=== PATIENT | female | born 1940 | race Caucasian/White ===

== ENCOUNTER 2017-05-16 06:44 | Inpatient (IN) | payer OTHER, MEDICARE ==
[2017-05-16] VITALS (8 sets, daily range): BP systolic 119–154; BP diastolic 71–90; PULSE 60–87; RESP 18; TEMP 96.5–97.9; O2SAT 93–99
[~2017-05-16] VITALS: Ht 162.6 cm; Wt 58.3 kg
[~2017-05-16 06:44] MED LIST: ALPR-138 PO; AMBI10TA PO; ANAS1 PO; BUPR150T3 PO; HYDR25; HYOS0.1232 PO; LEVA500T33 PO; LEXA10TA PO; LORA0.5T PO; SYNT25TA PO; TIOT18I; TRAM50 PO
[2017-05-16] MEDS ORDERED: SODIUM CHLOR 0.9% 1000 ML INJ 1,000 ML IV ONE (06:57)
--- NOTE | 2017-05-16 07:13 | RADRPT ---
EXAM DATE/TIME: 05/16/2017 06:58 [facility] COMPARISON: No previous studies available for comparison. INDICATIONS : Right arm weakness and numbness. RADIATION DOSE: 57.74 CTDIvol (mGy) This report was called by Dr. Randy Barrios to Dr. Link at 7: 05AM MEDICAL HISTORY : Carcinoma, breast. SURGICAL HISTORY : None. ENCOUNTER: Initial ACUITY: 1 day PAIN SCALE: 0/10 LOCATION: Right cranial stroke scale 2 TECHNIQUE: Multiple contiguous axial images were obtained of the head. Using automated exposure control and adj ustment of the mA and/or kV according to patient size, radiation dose was kept as low as reasonably a chievable to obtain optimal diagnostic quality images. DICOM format image data is available electro nically for review and comparison. FINDINGS: CEREBRUM: The ventricles are normal for age. No evidence of midline shift, mass lesion, hemorrhage or acute in farction. No extra-axial fluid collections are seen. POSTERIOR FOSSA: The cerebellum and brainstem are intact. The 4th ventricle is midline. The cerebellopontine angle i s unremarkable. EXTRACRANIAL: The visualized portion of the orbits is intact. SKULL: The calvaria is intact. No evidence of skull fracture. CONCLUSION: 1. No acute intracranial abnormality. Nish Barrios MD on May 16, 2017 at 7:08 Board Certified Radiologist. This report was verified electronically.
[2017-05-16 07:22] LABS: AUTOMATED NEUTROPHIL # 2.3 TH/MM3 (1.8-7.7); BASOPHIL # 0.1 TH/MM3 (0-0.2); BASOPHIL % 1.2 % (0.0-2.0); EOSINOPHIL # 0.1 TH/MM3 (0-0.4); EOSINOPHIL % 1.9 % (0.0-4.0); HEMATOCRIT 44.6 % (35.0-46.0); HEMO FLAGS DIFF FINAL; LYMPH % 30.1 % (9.0-44.0); LYMPHOCYTE # 1.3 TH/MM3 (1.0-4.8); MEAN CELL VOLUME 103.6 FL (80.0-100.0); MEAN CORPUSCULAR HEMOGLOBIN 33.5 PG (27.0-34.0); MEAN CORPUSCULAR HGB CONC 32.4 % (32.0-36.0); MONO % 9.5 % (0.0-8.0); NEUT % 57.3 % (16.0-70.0); PLATELET COUNT 284 TH/MM3 (150-450); RED CELL DISTRIBUTION WIDTH 12.7 % (11.6-17.2); WHITE BLOOD COUNT 4.2 TH/MM3 (4.0-11.0)
[2017-05-16] MEDS ORDERED: TRAZ50TA12 PO (07:24)
[2017-05-16] MEDS ORDERED: LEVO75TA3 PO (07:24)
[2017-05-16] MEDS ORDERED: BUSP10TA PO (07:25)
[2017-05-16] MEDS ORDERED: VENL75TA PO (07:25)
[2017-05-16 07:27] LABS: CHLORIDE 102 MEQ/L (98-107); POTASSIUM 3.4 MEQ/L (3.5-5.1); SODIUM (NA) 137 MEQ/L (136-145)
[2017-05-16 07:30] LABS: ANION GAP 7 MEQ/L (5-15); BICARBONATE 28.2 MEQ/L (21.0-32.0); BLOOD UREA NITROGEN 10 MG/DL (7-18)
[2017-05-16] MEDS ORDERED: ASPIRIN 325 MG TAB PO ONE (07:30)
[2017-05-16 07:31] LABS: PROTHROMBIN TIME - PATIENT 11.3 SEC (9.8-11.6)
[2017-05-16 07:33] LABS: GLOMERULAR FILTRATION RATE 90 ML/MIN (>89)
[2017-05-16 07:38] LABS: BETA HCG QUANT 3 MIU/ML (0-5)
[2017-05-16 07:39] LABS: CREATINE KINASE 41 U/L (26-192)
[2017-05-16] MEDS ORDERED: IOHEXOL 350 MG/ML 10 ML VIAL (for RAD DIAG) IVCONTRAST ONE (07:45)
--- NOTE | 2017-05-16 08:37 | RADRPT ---
EXAM DATE/TIME: 05/16/2017 07:36 [facility] COMPARISON: CT BRAIN W/O CONTRAST, May 16, 2017, 6:58. INDICATIONS : Rt arm numbness. Post stroke alert. IV CONTRAST: 75 cc Omnipaque 350 (iohexol) IV ; Cumulative dose for multiple exams. RADIATION DOSE: 6.16 CTDIvol (mGy) MEDICAL HISTORY : Carcinoma, breast. SURGICAL HISTORY : Cholecystectomy. Appendectomy.Hysterectomy.Cole knees ENCOUNTER: Initial ACUITY: 1 day PAIN SCALE: 0/10 LOCATION: cranial TECHNIQUE: Volumetric scanning was performed using a multi-row detector CT scanner. The data was post processed with a variety of visualization algorithms including full volume maximum intensity projection, multi -planar sliding thin slab reformation, curved planar reformation, and surface rendering techniques. Using automated exposure control and adjustment of the mA and/or kV according to patient size, radiat ion dose was kept as low as reasonably achievable to obtain optimal diagnostic quality images. DICO M format image data is available electronically for review and comparison. FINDINGS: The basilar artery is widely patent. The distal internal carotid arteries are patent. The anterior an d middle cerebral circulation appears widely patent bilaterally. The posterior circulation is widely patent. No aneurysm is identified. No AVM is identified. CONCLUSION: 1. Negative CTA of the brain. No large or central vessel occlusion identified. Nish Barrios MD on May 16, 2017 at 8:33 Board Certified Radiologist. This report was verified electronically.
--- NOTE | 2017-05-16 08:42 | RADRPT ---
EXAM DATE/TIME: 05/16/2017 07:36 [facility] COMPARISON: CT BRAIN W/O CONTRAST, May 16, 2017, 6:58. INDICATIONS : Rt arm numbness. Post code stroke. IV CONTRAST: 75 cc Omnipaque 350 (iohexol) IV ; Cumulative dose for multiple exams. RADIATION DOSE: 13.17 CTDIvol (mGy) MEDICAL HISTORY : Carcinoma, breast. SURGICAL HISTORY : Appendectomy. Cholecystectomy.Hysterectomy.Cole knees ENCOUNTER: Initial ACUITY: 1 day PAIN SCALE: 0/10 LOCATION: neck Elevated flow velocities and ICA/CCA ratios have been found to correlate with increased degrees of vessel stenosis, calculated as percentage of diameter relative to a normal segment of distal ICA/CCA. TECHNIQUE: Volumetric scanning was performed using a multirow detector CT scanner. The data was post processed with a variety of visualization algorithms including full-volume maximum intensity projection, multip lanar sliding thin-slab reformation, curved-planar reformation, and surface-rendering techniques. Us ing automated exposure control and adjustment of the mA and/or kV according to patient size, radiatio n dose was kept as low as reasonably achievable to obtain optimal diagnostic quality images. DICOM f ormat image data is available electronically for review and comparison. FINDINGS: AORTIC ARCH: There is a three-vessel origin of the great vessels from the aorta. No evidence of ostial narrowing. RIGHT CAROTID: The common carotid is widely patent. There is minimal atherosclerotic plaquing at the bifurcation. Th e internal carotid and external carotid are widely patent throughout their course. LEFT CAROTID: The common carotid is widely patent. There is minimal atherosclerotic plaquing at the bifurcation. Th e internal carotid and external carotid are widely patent throughout their course. VERTEBRALS: The right vertebral is considerably smaller in size than the left. Both are patent.. No stenotic les ions are seen. CONCLUSION: 1. Minimal atherosclerotic plaquing at the carotid bifurcations. No hemodynamically significant carot id stenosis identified. 2. Both vertebrals are widely patent. The right vertebral is smaller in size than the left. 3. Degenerative changes in the cervical spine. Nish Barrios MD on May 16, 2017 at 8:39 Board Certified Radiologist. This report was verified electronically.
--- NOTE | 2017-05-16 09:04 | PD ---
HPI Chief Complaint: Stroke Alert Time Seen by Provider: 07:23 Travel History International Travel<30 days: No Contact w/Intl Traveler<30days: No Traveled to known affect area: No History of Present Illness HPI Patient is a 76-year-old female who comes in complaining of right arm numbness and weakness. She says she woke up around 5 AM this morning and was fine, but when she went to brush her teeth, she noticed that she was unable to control her hand. She says that she was unable to brush her hair and when she tried to hold a cup, she dropped it several times. She then drove herself to the hospital to be evaluated. She denies any weakness in her legs. She says she's never had this before. She does admit to being under a lot of stress as she recently lost her . She denies chest pain or shortness of breath. She denies fever or chills. She has no vision issues. PFSH Past Medical History Arthritis: Yes ( OSTEOARTHRITIS) Blood Disorders: No Anxiety: Yes Depression: Yes Cancer: Yes (BREAST CA) Cardiovascular Problems: No Chemotherapy: Yes Diminished Hearing: No Endocrine: No Genitourinary: No Immune Disorder: No Musculoskeletal: Yes (R KNEE REPLACEMENT) Neurologic: No Psychiatric: No Respiratory: No Radiation Therapy: No Thyroid Disease: Yes Influenza Vaccination: No ?: Not Menopausal: Yes Past Surgical History Abdominal Surgery: Yes (GALLBLADDER,APPENDIX,HYSTERECTOMY) Appendectomy: Yes Cardiac Surgery: No Cholecystectomy: Yes Ear Surgery: No Endocrine Surgery: No Eye Surgery: No Genitourinary Surgery: No Gynecologic Surgery: Yes (HYSTERECTOMY) Hysterectomy: Yes Joint Replacement: Yes (RIGHT KNEE/LEFT KNEE) Neurologic Surgery: No Oral Surgery: No Pacemaker: No Thoracic Surgery: No Other Surgery: Yes (BREAST CA -BIOPSY AND LYMPHNODES REMOVED TO LEFT ) Social History Alcohol Use: Yes (LARGE AMOUNTS OF WINE DAILY) Tobacco Use: Yes Substance Use: No Allergies-Medications (Allergen,Severity, Reaction): Coded Allergies: No Known Allergies (Verified , 05/16/17) Reported Meds & Prescriptions Reported Meds & Active Scripts Active Reported Buspirone (Buspirone HCl) 10 Mg Tab 10 Mg PO DAILY Effexor (Venlafaxine HCl) 75 Mg Tab 75 Mg PO DAILY Trazodone (Trazodone HCl) 50 Mg Tab 50 Mg PO HS Levothyroxine (Levothyroxine Sodium) 75 Mcg Tab 75 Mcg PO DAILY Review of Systems Except as stated in HPI: all other systems reviewed are Neg General / Constitutional: No: Fever, Chills Eyes: No: Blurred Vision HENT: No: Headaches, Lightheadedness Cardiovascular: No: Chest Pain or Discomfort Respiratory: No: Shortness of Breath Gastrointestinal: No: Nausea, Vomiting Genitourinary: No: Dysuria Musculoskeletal: No: Edema, Pain Skin: No Rash, No Change in Pigmentation Neurologic: Positive: Weakness, Paresthesia Physical Exam Narrative GENERAL: Awake and alert, in no acute distress. SKIN: Focused skin assessment warm/dry. HEAD: Atraumatic. Normocephalic. EYES: Pupils equal and round. No scleral icterus. Extraocular movements intact. ENT: Mucous membranes pink and moist. NECK: Trachea midline. No JVD. CARDIOVASCULAR: Regular rate and rhythm. No murmur appreciated. RESPIRATORY: No accessory muscle use. Clear to auscultation. Breath sounds equal bilaterally. GASTROINTESTINAL: Abdomen soft, non-tender, nondistended. MUSCULOSKELETAL: No obvious deformities. No clubbing. No cyanosis. No edema. NEUROLOGICAL: Awake and alert. No obvious cranial nerve deficits. Equal airframe and powerplant mechanic strength in both hands, equal strength in both arms. There is a slight pronator drift on the right. Decreased sensation to the right hand. Strength in both legs is equal. Sensation to both legs is equal. Normal speech. PSYCHIATRIC: Appropriate mood and affect; insight and judgment normal. Data Data Last Documented VS Vital Signs Date Time Temp Pulse Resp B/P (MAP) Pulse Ox O2 Delivery O2 Flow Rate FiO2 05/16/17 08:13 69 18 128/71 (90) 98 Room Air 05/16/17 07:02 2.00 05/16/17 06:57 97.9 Orders Orders Cath For Specimen (05/16/17 06:57) Neuro Checks Q2HX12,Q4H (05/16/17 06:57) Nursing Bedside Swallow Assess .ONCE (05/16/17 06:57) Activity Bed Rest (05/16/17 06:57) Diet Npo (05/16/17 Breakfast) Prothrombin Time / Inr (Pt) (05/16/17 06:57) Act Partial Throm Time (Ptt) (05/16/17 06:57) Complete Blood Count With Diff (05/16/17 06:57) Basic Metabolic Panel (Bmp) (05/16/17 06:57) Fibrinogen (05/16/17 06:57) Creatine Kinase (Cpk) (05/16/17 06:57) Troponin I (05/16/17 06:57) Ua Includes Microscopic (05/16/17 06:57) Drug Screen, Random Urine (05/16/17 06:57) Type And Screen (05/16/17 06:57) Ct Brain W/O Iv Contrast(Rout) (05/16/17 ) Electrocardiogram (05/16/17 ) Beta Hcg (Quant/Titer) (05/16/17 06:57) Consult Neurology (05/16/17 06:57) Sodium Chlor 0.9% 1000 Ml Inj (Ns 1000 M (05/16/17 06:57) Blood Glucose (05/16/17 06:57) Ecg Monitoring (05/16/17 06:57) Iv Access Insert/Monitor (05/16/17 06:57) NPO (05/16/17 06:57) Oximetry (05/16/17 06:57) Oxygen Administration (05/16/17 06:57) Resp Oxygen Sam C Titrat 1-4 L (05/16/17 06:57) (Hub Use Only)Inp Phy Cons/Ref (05/16/17 ) Aspirin (Aspirin) (05/16/17 07:30) Cta Brain W Iv Contrast W 3d (05/16/17 ) Cta Neck W Iv Contrast W 3d (05/16/17 ) Iohexol 350 Inj (Omnipaque 350 Inj) (05/16/17 07:45) Labs Laboratory Tests Test 05/16/17 07:12 White Blood Count 4.2 TH/MM3 Red Blood Count 4.30 MIL/MM3 Hemoglobin 14.4 GM/DL Hematocrit 44.6 % Mean Corpuscular Volume 103.6 FL Mean Corpuscular Hemoglobin 33.5 PG Mean Corpuscular Hemoglobin Concent 32.4 % Red Cell Distribution Width 12.7 % Platelet Count 284 TH/MM3 Mean Platelet Volume 6.5 FL Neutrophils (%) (Auto) 57.3 % Lymphocytes (%) (Auto) 30.1 % Monocytes (%) (Auto) 9.5 % Eosinophils (%) (Auto) 1.9 % Basophils (%) (Auto) 1.2 % Neutrophils # (Auto) 2.3 TH/MM3 Lymphocytes # (Auto) 1.3 TH/MM3 Monocytes # (Auto) 0.4 TH/MM3 Eosinophils # (Auto) 0.1 TH/MM3 Basophils # (Auto) 0.1 TH/MM3 CBC Comment DIFF FINAL Differential Comment Prothrombin Time 11.3 SEC Prothromb Time International Ratio 1.0 RATIO Activated Partial Thromboplast Time 25.0 SEC Fibrinogen 280 mg/dL Blood Urea Nitrogen 10 MG/DL Creatinine 0.64 MG/DL Random Glucose 104 MG/DL Calcium Level 8.5 MG/DL Sodium Level 137 MEQ/L Potassium Level 3.4 MEQ/L Chloride Level 102 MEQ/L Carbon Dioxide Level 28.2 MEQ/L Anion Gap 7 MEQ/L Estimat Glomerular Filtration Rate 90 ML/MIN Total Creatine Kinase 41 U/L Troponin I LESS THAN 0.02 NG/ML Human Chorionic Gonadotropin, Quant 3 MIU/ML MDM Medical Decision Making Medical Screen Exam Complete: Yes Emergency Medical Condition: Yes Medical Record Reviewed: Yes Interpretation(s) ECG shows normal sinus rhythm at 72, no ST elevation or depression, normal intervals Differential Diagnosis TIA versus stroke versus electrolyte abnormality versus infection Narrative Course Patient is a 76-year-old female who comes in complaining of right arm weakness. Exam shows slight pronator drift on the right, otherwise motor is intact. Patient was stroke alerted and taken to CT. CT head is negative for any bleed. I spoke with Dr. Cruz, who does not advised TPA at this time due to the fact that she woke up and had symptoms as well as the minor severity of the symptoms. He suggests aspirin. Patient was given a full 325 mg aspirin. Labs sent show no acute abnormalities. CTA brain and carotids show no acute abnormalities. Patient will be admitted for further management. Diagnosis Primary Impression: Stroke Qualified Codes: I63.9 - Cerebral infarction, unspecified Admitting Information Admitting Physician Requests: Admit Condition: Aminta Reed MD May 16, 2017 09:04
[2017-05-16] MEDS: SODIUM CHLOR 0.9% 1000 ML INJ 1,000 ML IV SCH (09:53)
[2017-05-16 10:37] LABS: GLUCOSE,URINE NEG (NEG); KETONE, URINE NEG (NEG); NITRITE,URINE NEG (NEG)
[2017-05-16 10:45] LABS: BLOOD, URINE TRACE (NEG)
[2017-05-16 10:47] LABS: METHOD OF COLLECTION CATH; URINE COLOR YELLOW (YELLW/STRAW); WBC, URINE 0-2 /hpf (0-5)
[2017-05-16] MEDS ORDERED: GADODIAMIDE PF 287 MG/ML 20 ML VIAL (for RAD MRI) IVCONTRAST ONE (12:08)
--- NOTE | 2017-05-16 12:16 | RADRPT ---
EXAM DATE/TIME: 05/16/2017 11:51 [facility] COMPARISON: No previous studies available for comparison. INDICATIONS : Right upper extremity numbness and weakness. MEDICAL HISTORY : Carcinoma, breast. SURGICAL HISTORY : Appendectomy. Cholecystectomy. Total knee replacement, right. ENCOUNTER: Initial ACUITY: 1 day PAIN SCORE: 0/10 LOCATION: cranial TECHNIQUE: Multiplanar, multisequence MRI of the brain was performed without contrast. FINDINGS: The diffusion restriction images demonstrate a small area of abnormal restricted diffusion involving the pre-and postcentral gyri on the left. This would suggest a punctate area of distal cortical infar ct. No other areas of abnormal diffusion signal are identified. The ventricular system is normal in size and could be duration. There are some scattered areas of inc reased T2 signal within the white matter most consistent with mild microvascular ischemic demyelinati ve change. No mass lesion is identified. No extra-axial fluid collections are seen. The appearance of the posterior fossa is unremarkable. The visualized portion of sinus and orbit are within normal limits. No findings to indicate hemorrhage are seen. CONCLUSION: 1. Small area of abnormal diffusion signal in the high left parietal cortices suggesting a very small area of acute cortical infarct. Nish Barrios MD on May 16, 2017 at 12:12 Board Certified Radiologist. This report was verified electronically.
--- NOTE | 2017-05-16 12:19 | RADRPT ---
EXAM DATE/TIME: 05/16/2017 11:51 [facility] COMPARISON: No previous studies available for comparison. INDICATIONS : Right upper extremity numbness and weakness. CONTRAST: 20 cc Omniscan (gadodiamide) IV MEDICAL HISTORY : Carcinoma, breast. SURGICAL HISTORY : Appendectomy. Cholecystectomy. Total knee replacement, right. ENCOUNTER: Initial ACUITY: 1 day PAIN SCORE: 0/10 LOCATION: cranial Percent stenosis is calculated using the diameter of the stenotic region over the diameter of the nor mal distal internal carotid artery. TECHNIQUE: Bolus infused MRA of the extracranial circulation was performed using a neurovascular coil. Post pro cessing was performed including rotating subvolume maximum intensity projections of each carotid blanquita ry, rotating full volume maximum intensity projections of both carotid arteries, sagittal and coronal sliding thin slab reformations of each carotid artery, and left oblique sliding thin slab reformatio n through the aortic arch to include the origin of the arch branch vessels. FINDINGS: AORTIC ARCH: There is a three vessel origin of the great vessels from the aorta. No evidence of ostial narrowing. RIGHT CAROTID: The common carotid artery is intact. The carotid bulb has a normal configuration without ulceration or narrowing. The internal carotid artery lumen is smooth without stenosis. The external carotid ar gela is intact. LEFT CAROTID: The common carotid artery is intact. The carotid bulb has a normal configuration without ulceration or narrowing. The internal carotid artery lumen is smooth without stenosis. The external carotid ar gela is intact. VERTEBRALS: The left vertebral is somewhat smaller in size in the right. Both are widely patent. CONCLUSION: 1. The carotid circulation is widely patent bilaterally. 2. The right vertebral is somewhat smaller in size in the left. Both vertebrals are patent. Nish Barrios MD on May 16, 2017 at 12:16 Board Certified Radiologist. This report was verified electronically.
--- NOTE | 2017-05-16 13:08 | PD.CONS ---
History of Present Illness Service Neurology Consult Requested By er Reason for Consult stroke alert Primary Care Physician Romina Kramer MD History of Present Illness 76-year-old female who comes in complaining of right arm numbness and weakness. woke up at around 5am and when she was using her rt arm noticed it was clumsy. went to sleep last night in her normal state of health. She denies chest pain or shortness of breath. She denies fever or chills. She has no vision issues. she feels well at present and feels back to normal and asking if she can go home. no hx of stroke/tia. no on any blood thinners. smokes 1.5 ppd x decades. hx of breast cancer. no hx of dvt/pe/clot/afib. PFSH Past Medical History Arthritis: Yes ( OSTEOARTHRITIS) Blood Disorders: No Anxiety: Yes Depression: Yes Cancer: Yes (BREAST CA) Cardiovascular Problems: No Chemotherapy: Yes Past Surgical History Abdominal Surgery: Yes (GALLBLADDER,APPENDIX,HYSTERECTOMY) Appendectomy: Yes Gynecologic Surgery: Yes (HYSTERECTOMY) Hysterectomy: Yes Joint Replacement: Yes (RIGHT KNEE/LEFT KNEE) Thoracic Surgery: No Other Surgery: Yes (BREAST CA -BIOPSY AND LYMPHNODES REMOVED TO LEFT ) Social History Alcohol Use: Yes (LARGE AMOUNTS OF WINE DAILY) Tobacco Use: Yes Substance Use: No Allergies-Medications (Allergen,Severity, Reaction): Coded Allergies: No Known Allergies (Verified , 05/16/17) Reported Meds & Prescriptions Reported Meds & Active Scripts Active Reported Buspirone (Buspirone HCl) 10 Mg Tab 10 Mg PO DAILY Effexor (Venlafaxine HCl) 75 Mg Tab 75 Mg PO DAILY Trazodone (Trazodone HCl) 50 Mg Tab 50 Mg PO HS Levothyroxine (Levothyroxine Sodium) 75 Mcg Tab 75 Mcg PO DAILY Review of Systems Except as stated in HPI: all other systems reviewed are Neg Review of Systems All other ROS: ROS reviewed as documented in chart Past Family Social History Allergies: Coded Allergies: No Known Allergies (Verified , 05/16/17) Active Ordered Medications Current Medications Medications (Trade) Dose Ordered Sig/Scott Route Start Time Stop Time Status Last Admin Sodium Chloride 1,000 ml @ 70 mls/hr [id number] ONCE IV 05/16/17 06:57 05/16/17 21:14 05/16/17 07:57 Sodium Chloride 1,000 ml @ 70 mls/hr [id number] IV 05/16/17 09:53 (Buspar) 10 mg DAILY PO 05/17/17 09:00 (Synthroid) 75 mcg DAILY@0600 PO 05/17/17 06:00 (Desyrel) 50 mg HS PO 05/16/17 21:00 (Effexor Xr) 75 mg DAILY PO 05/17/17 09:00 Exam I&O / VS 05/16/17 05/16/17 05/17/17 14:59 22:59 06:59 Intake Total 120 ml Balance 120 ml Intake Oral 120 ml # Voids 1 Vital Signs Date Time Temp Pulse Resp B/P (MAP) Pulse Ox O2 Delivery O2 Flow Rate FiO2 05/16/17 11:00 65 18 124/88 (100) 98 Nasal Cannula 2.00 05/16/17 09:32 60 18 144/79 (100) 98 Room Air 05/16/17 08:13 69 18 128/71 (90) 98 Room Air 05/16/17 07:22 67 18 119/80 (93) 99 Room Air 05/16/17 07:02 97 Nasal Cannula 2.00 05/16/17 06:57 97.9 87 18 154/90 (111) 96 General: Alert and Oriented, No acute distress Eye: EOMI, Normal conjuctiva Respiratory: Non-labored respirations Cardiology: Normal rate Neurologic: Alert, Oriented, Normal sensory, Normal motor, CN II-XII intact, Gag reflex normal, Normal DTR's Psychiatric: Cooperative, Appropriate mood & affect, Normal judgement, Non- suicidal Exam Comments ox 3, no aphasia, pleasant, follows, eomi, vff, no drift, minimal rt ue dystaxia , sensory nml Review/Management Diagnosis/Plan: (1) Acute ischemic left MCA stroke ICD Codes: I63.512 - Cerebral infarction due to unspecified occlusion or stenosis of left middle cerebral artery Status: Acute Plan: very tiny left cortical infarct; non-disabling likely 2/2 small vessel dz from distal atherosclerotic vessel cta's reviewed; no large or small vessel occlusion recs aspirin daily tobacco cessation tele echo lipid panel- add statin if ldl >70 should f.u with her onc md for hypercoag w/u if they feel appropriate should get a long-term event monitor with cardiology to r/o afib- can get this outpatient d/c planning in am f/u with me and Dr. Kramer in 2 weeks pt going on a cruise on Thursday (2) Tobacco dependence ICD Codes: F17.200 - Nicotine dependence, unspecified, uncomplicated Status: Chronic Plan: cessation d/w pt risks of continued use d/w (3) HTN (hypertension) ICD Codes: I10 - Essential (primary) hypertension Status: Chronic (4) Breast cancer ICD Codes: C50.919 - Malignant neoplasm of unspecified site of unspecified female breast Status: Resolved Problem Qualifiers (1) HTN (hypertension): Qualified Codes: I10 - Essential (primary) hypertension (2) Breast cancer: Robert Cruz MD May 16, 2017 13:08
--- NOTE | 2017-05-16 13:32 | HHI.HP ---
[facility] Primary [facility] Physician Romina Kramer MD Admission Diagnosis CVA Diagnoses: Chief Complaint: right arm numbness Travel History International Travel<30 Days: No Contact w/Intl Traveler <30 Da: No Traveled to Known Affected Are: No History of Present Illness Patient is a 76-year-old female with acute onset of right arm numbness and weakness after she woke up around 5 AM this morning. She then drover her son to work and herself to the hospital. She has periodic symptoms in the right leg but not today. She drinks several glasses of wine every evening (her about 2 weeks ago). She was fine before she went to bed and when she got up to go tho the bathroom overnight. Her symptoms are improved without intervention and she is admitted for evaluation of probable cva. Review of Systems Constitutional: DENIES: Diaphoretic episodes, Fatigue, Fever, Weight gain, Weight loss, Chills, Dizziness, Change in appetite, Night Sweats Endocrine: DENIES: Abnorml menstrual pattern, Heat/cold intolerance, Polydipsia , Polyuria, Polyphagia Eyes: DENIES: Blurred vision, Diplopia, Eye inflammation, Eye pain, Vision loss , Photosensitivity, Double Vision Ears, nose, mouth, throat: DENIES: Tinnitus, Hearing loss, Vertigo, Nasal discharge, Oral lesions, Throat pain, Hoarseness, Ear Pain, Running Nose, Epistaxis, Sinus Pain, Toothache, Odynophagia Cardiovascular: DENIES: Chest pain, Palpitations, Syncope, Dyspnea on Exertion , PND, Lower Extremity Edema, Orthopnea, Claudication Genitourinary: DENIES: Abnormal vaginal bleeding, Dysmenorrhea, Dyspareunia, Sexual dysfunction, Urinary frequency, Urinary incontinence, Urgency, Hematuria , Dysuria, Nocturia, Vaginal discharge Musculoskeletal: DENIES: Joint pain, Muscle aches, Stiffness, Joint Swelling, Back pain, Neck pain Integumentary: DENIES: Abnormal pigmentation, Pruritus, Rash, Nail changes, Breast masses, Breast skin changes, Nipple discharge Hematologic/lymphatic: DENIES: Bruising, Lymphadenopathy Immunologic/allergic: DENIES: Eczema, Urticaria Neurologic: COMPLAINS OF: Localized weakness, Paresthesias, DENIES: Abnormal gait, Headache, Seizures, Speech Problems, Tremor, Poor Balance Psychiatric: DENIES: Anxiety, Confusion, Mood changes, Depression, Hallucinations, Agitation, Suicidal Ideation, Homicidal Ideation, Delusions Except as stated in HPI: all other systems reviewed are Neg Past Family Social History Past Medical History depression thyroid d/o Past Surgical History appy [facility] Reported Medications reviewed in the EMR Allergies: Coded Allergies: No Known Allergies (Verified , 05/16/17) Active Ordered Medications reviewed in the EMR Family History mother of lymphoma father at 91 Social History tobacco 1 ppd or more etoh daily (wine) lives with son x 1 month Physical Exam Vital Signs Vital Signs Date Time Temp Pulse Resp B/P (MAP) Pulse Ox O2 Delivery O2 Flow Rate FiO2 05/16/17 11:00 65 18 124/88 (100) 98 Nasal Cannula 2.00 05/16/17 09:32 60 18 144/79 (100) 98 Room Air 05/16/17 08:13 69 18 128/71 (90) 98 Room Air 05/16/17 07:22 67 18 119/80 (93) 99 Room Air 05/16/17 07:02 97 Nasal Cannula 2.00 05/16/17 06:57 97.9 87 18 154/90 (111) 96 Physical Exam GENERAL: This is a well-nourished, well-developed patient, in no apparent distress. SKIN: No rashes, ecchymoses or lesions. Cool and dry. HEAD: Atraumatic. Normocephalic. No temporal or scalp tenderness. EYES: Pupils equal round and reactive. Extraocular motions intact. No scleral icterus. No injection or drainage. ENT: Nose without bleeding, purulent drainage or septal hematoma. Throat without erythema, tonsillar hypertrophy or exudate. Uvula midline. Airway patent. NECK: Trachea midline. No JVD or lymphadenopathy. Supple, nontender, no meningeal signs. CARDIOVASCULAR: Regular rate and rhythm without murmurs, gallops, or rubs. RESPIRATORY: Clear to auscultation. Breath sounds equal bilaterally. No wheezes , rales, or rhonchi. GASTROINTESTINAL: Abdomen soft, non-tender, nondistended. No hepato-splenomegaly , or palpable masses. No guarding. MUSCULOSKELETAL: very mild right arm weakness and hand strength is decreased. Other 3 Extremities without clubbing, cyanosis, or edema. No joint tenderness, effusion, or edema noted. No calf tenderness. Negative Homans sign bilaterally. NEUROLOGICAL: Awake and alert. Cranial nerves II through XII intact. Motor and sensory grossly within normal limits. Five out of 5 muscle strength in all muscle groups. Normal speech. Laboratory Laboratory Tests Test 05/16/17 07:12 05/16/17 07:15 05/16/17 10:15 White Blood Count 4.2 Red Blood Count 4.30 Hemoglobin 14.4 Hematocrit 44.6 Mean Corpuscular Volume 103.6 Mean Corpuscular Hemoglobin 33.5 Mean Corpuscular Hemoglobin Concent 32.4 Red Cell Distribution Width 12.7 Platelet Count 284 Mean Platelet Volume 6.5 Neutrophils (%) (Auto) 57.3 Lymphocytes (%) (Auto) 30.1 Monocytes (%) (Auto) 9.5 Eosinophils (%) (Auto) 1.9 Basophils (%) (Auto) 1.2 Neutrophils # (Auto) 2.3 Lymphocytes # (Auto) 1.3 Monocytes # (Auto) 0.4 Eosinophils # (Auto) 0.1 Basophils # (Auto) 0.1 CBC Comment DIFF FINAL Differential Comment Prothrombin Time 11.3 Prothromb Time International Ratio 1.0 Activated Partial Thromboplast Time 25.0 Fibrinogen 280 Blood Urea Nitrogen 10 Creatinine 0.64 Random Glucose 104 Calcium Level 8.5 Sodium Level 137 Potassium Level 3.4 Chloride Level 102 Carbon Dioxide Level 28.2 Anion Gap 7 Estimat Glomerular Filtration Rate 90 Total Creatine Kinase 41 Troponin I LESS THAN 0.02 Human Chorionic Gonadotropin, Quant 3 Urine Collection Type CATH Urine Color YELLOW Urine Turbidity CLEAR Urine pH 5.0 Urine Specific [place] GREATER THAN 1.035 Urine Protein NEG Urine Glucose (UA) NEG Urine Ketones NEG Urine Occult Blood TRACE Urine Nitrite NEG Urine Bilirubin NEG Urine Leukocyte Esterase NEG Urine WBC 0-2 Urine Opiates Screen NEG Urine Barbiturates Screen NEG Urine Amphetamines Screen NEG Urine Benzodiazepines Screen NEG Urine Cocaine Screen NEG Urine Cannabinoids Screen NEG Result Diagram: 05/16/[id number] Imaging Last Impressions Neck Magnetic Resonance Angiography 05/16/17 0000 Signed Impressions: Service Date/Time: Tuesday, May 16, 2017 11:51 - CONCLUSION: 1. The carotid circulation is widely patent bilaterally. 2. The right vertebral is somewhat smaller in size in the left. Both vertebrals are patent. Nish Barrios MD Neck CTA 05/16/17 Signed Impressions: Service Date/Time: Tuesday, May 16, 2017 07:36 - CONCLUSION: 1. Minimal atherosclerotic plaquing at the carotid bifurcations. No hemodynamically significant carotid stenosis identified. 2. Both vertebrals are widely patent. The right vertebral is smaller in size than the left. 3. Degenerative changes in the cervical spine. Nish Barrios MD Head CTA 05/16/17 Signed Impressions: Service Date/Time: Tuesday, May 16, 2017 07:36 - CONCLUSION: 1. Negative CTA of the brain. No large or central vessel occlusion identified. Nish Barrios MD Head CT 05/16/17 Signed Impressions: Service Date/Time: Tuesday, May 16, 2017 06:58 - CONCLUSION: 1. No acute intracranial abnormality. Nish Barrios MD Brain MRI 05/16/17 Signed Impressions: Service Date/Time: Tuesday, May 16, 2017 11:51 - CONCLUSION: 1. Small area of abnormal diffusion signal in the high left parietal cortices suggesting a very small area of acute cortical infarct. Nish Barrios MD Caprini VTE Risk Assessment Caprini VTE Risk Assessment: Mod/High Risk (score >= 2) Caprini Risk Assessment Model Point Value = 1 Point Value = 2 Point Value = 3 Point Value = 5 Age 41-60 Minor surgery BMI > 25 kg/m2 Swollen legs Varicose veins or History of unexplained or recurrent spontaneous Oral contraceptives or hormone replacement Sepsis (< 1 month) Serious lung disease, including pneumonia (< 1 month) Abnormal pulmonary function Acute myocardial infarction Congestive heart failure (< 1 month) History of inflammatory bowel disease Medical patient at bed rest Age 61-74 Arthroscopic surgery Major open surgery (> 45 min) Laparoscopic surgery (> 45 min) Malignancy Confined to bed (> 72 hours) Immobilizing plaster cast Central venous access Age >= 75 History of VTE Family history of VTE Factor V Leiden Prothrombin [id number] Lupus anticoagulant Anticardiolipin antibodies Elevated serum homocysteine Heparin-induced thrombocytopenia Other congenital or acquired thrombophilia Stroke (< 1 month) Elective arthroplasty Hip, pelvis, or leg fracture Acute spinal cord injury (< 1 month) Prophylaxis Regimen Total Risk Factor Score Risk Level Prophylaxis Regimen 0-1 Low Early ambulation 2 Moderate Order ONE of the following: *Sequential Compression Device (SCD) *Heparin 5000 units SQ BID 3-4 Higher Order ONE of the following medications: *Heparin 5000 units SQ TID *Enoxaparin/Lovenox 40 mg SQ daily (WT < 150 kg, CrCl > 30 mL/min) *Enoxaparin/Lovenox 30 mg SQ daily (WT < 150 kg, CrCl > 10-29 mL/min) *Enoxaparin/Lovenox 30 mg SQ BID (WT < 150 kg, CrCl > 30 mL/min) AND/OR *Sequential Compression Device (SCD) 5 or more Highest Order ONE of the following medications: *Heparin 5000 units SQ TID (Preferred with Epidurals) *Enoxaparin/Lovenox 40 mg SQ daily (WT < 150 kg, CrCl > 30 mL/min) *Enoxaparin/Lovenox 30 mg SQ daily (WT < 150 kg, CrCl > 10-29 mL/min) *Enoxaparin/Lovenox 30 mg SQ BID (WT < 150 kg, CrCl > 30 mL/min) AND *Sequential Compression Device (SCD) Assessment and Plan Problem List: (1) Stroke ICD Code: I63.9 - Cerebral infarction, unspecified Status: Acute Plan: small left parietal cortex infarct aspirin. risk stratification f/u echo neuro eval appreciated Assessment and Plan likely dc in am Code Status full code Discussed Condition With patient, ER MD Physician Certification 2 Midnight Certification Type: Admission for Inpatient Services Order for Inpatient Services The services are ordered in accordance with Medicare regulations or non- Medicare payer requirements, as applicable. In the case of services not specified as inpatient-only, they are appropriately provided as inpatient services in accordance with the 2-midnight benchmark. Estimated LOS (days): 2 2 days is the estimated time the patient will need to remain in the hospital, assuming treatment plan goals are met and no additional complications. Post-Hospital Plan: Home Problem Qualifiers (1) Stroke: Qualified Codes: I63.9 - Cerebral infarction, unspecified Jade Jennings MD May 16, 2017 13:32
--- NOTE | 2017-05-16 14:20 | EKG ---
Date Performed: 05/16/2017 Time Performed: 07:14:44 PTAGE: 76 years EKG: Sinus rhythm BORDERLINE LEFT AXIS DEVIATION BORDERLINE ECG PREVIOUS TRACING : 08/31/2011 17.47 DOCTOR: Ganesh Li Interpretating Date/Time 05/16/2017 14:15:06
[2017-05-16] MEDS: HEPARIN SODIUM - SQ 10,000 UNITS/ML VIAL SQ SCH ×2 (16:17→21:44)
[2017-05-16 18:47] LABS: HDL CHOLESTEROL 59.3 MG/DL (40.0-60.0); LDL CHOLESTEROL 123 MG/DL (0-99)
[2017-05-16] MEDS ORDERED: traZODone HCL 50 MG TAB PO SCH (21:00)
[2017-05-17] VITALS: BP 141/78; PULSE 54; RESP 18; TEMP 96.5; O2SAT 93
[2017-05-17 04:00] VITALS: BP 160/100; PULSE 62; RESP 18; TEMP 97; O2SAT 97
[2017-05-17] MEDS ORDERED: LEVOTHYROXINE SODIUM 75 MCG TAB PO SCH (06:00)
[2017-05-17] MEDS: HEPARIN SODIUM - SQ 10,000 UNITS/ML VIAL SQ SCH (06:19)
[2017-05-17 08:00] VITALS: BP 148/83; PULSE 52; PULSE 64; RESP 18; TEMP 96.1; O2SAT 96
[2017-05-17] MEDS: SODIUM CHLOR 0.9% 1000 ML INJ 1,000 ML IV SCH (08:49)
[2017-05-17] MEDS ORDERED: ASPI325T PO (08:52)
[2017-05-17] MEDS ORDERED: SIMV20TA PO (08:52)
--- NOTE | 2017-05-17 08:52 | HHI.DCPOC ---
Discharge Care Plan Diagnosis: (1) Acute ischemic left MCA stroke Goals to Promote Your Health * To prevent worsening of your condition and complications * To maintain your health at the optimal level Directions to Meet Your Goals Take your medications as prescribed Follow your dietary instruction Follow activity as directed Keep your appointments as scheduled Take your immunizations and boosters as scheduled If your symptoms worsen call your PCP, if no PCP go to Urgent Care Center or Emergency Room Smoking is Dangerous to Your Health. Avoid second hand smoke Call the 24-hour hour crisis hotline for domestic abuse at Jade Jennings MD May 17, 2017 08:52
--- NOTE | 2017-05-17 08:55 | HHI.DS ---
cc: Romina Kramer MD Discharge Summary Admission Date May 16, 2017 at 09:14 Discharge Date: May 17, 2017 Admitting Diagnosis CVA (1) Stroke ICD Code: I63.9 - Cerebral infarction, unspecified Status: Acute Procedures None Brief History - From Admission Patient is a 76-year-old female with acute onset of right arm numbness and weakness after she woke up around 5 AM this morning. She then drover her son to work and herself to the hospital. She has periodic symptoms in the right leg but not today. She drinks several glasses of wine every evening (her about 2 weeks ago). She was fine before she went to bed and when she got up to go tho the bathroom overnight. Her symptoms are improved without intervention and she is admitted for evaluation of probable cva. CBC/BMP: 05/16/17 0712 05/16/17 0712 Significant Findings Laboratory Tests Test 05/16/17 07:12 05/16/17 07:15 05/16/17 10:15 Mean Corpuscular Volume 103.6 FL (80.0-100.0) Mean Platelet Volume 6.5 FL (7.0-11.0) Monocytes (%) (Auto) 9.5 % (0.0-8.0) Potassium Level 3.4 MEQ/L (3.5-5.1) Troponin I LESS THAN 0.02 NG/ML Cholesterol Level 206 MG/DL (120-200) LDL Cholesterol 123 MG/DL (0-99) Urine Specific [place] GREATER THAN 1.035 Urine Occult Blood TRACE (NEG) Imaging Last Impressions Neck Magnetic Resonance Angiography 05/16/17 0000 Signed Impressions: Service Date/Time: Tuesday, May 16, 2017 11:51 - CONCLUSION: 1. The carotid circulation is widely patent bilaterally. 2. The right vertebral is somewhat smaller in size in the left. Both vertebrals are patent. Nish Barrios MD Neck CTA 05/16/17 0000 Signed Impressions: Service Date/Time: Tuesday, May 16, 2017 07:36 - CONCLUSION: 1. Minimal atherosclerotic plaquing at the carotid bifurcations. No hemodynamically significant carotid stenosis identified. 2. Both vertebrals are widely patent. The right vertebral is smaller in size than the left. 3. Degenerative changes in the cervical spine. Nish Barrios MD Head CTA 05/16/17 Signed Impressions: Service Date/Time: Tuesday, May 16, 2017 07:36 - CONCLUSION: 1. Negative CTA of the brain. No large or central vessel occlusion identified. Nish Barrios MD Head CT 05/16/17 Signed Impressions: Service Date/Time: Tuesday, May 16, 2017 06:58 - CONCLUSION: 1. No acute intracranial abnormality. Nish Barrios MD Brain MRI 05/16/17 Signed Impressions: Service Date/Time: Tuesday, May 16, 2017 11:51 - CONCLUSION: 1. Small area of abnormal diffusion signal in the high left parietal cortices suggesting a very small area of acute cortical infarct. Nish Barrios MD PE at Discharge GENERAL: This is a well-nourished, well-developed patient, in no apparent distress. CARDIOVASCULAR: Regular rate and rhythm without murmurs, gallops, or rubs. RESPIRATORY: Clear to auscultation. Breath sounds equal bilaterally. No wheezes , rales, or rhonchi. GASTROINTESTINAL: Abdomen soft, non-tender, nondistended. Normal active bowel sounds MUSCULOSKELETAL: Extremities without clubbing, cyanosis, or edema. NEURO: Alert & Oriented x4 to person, place, time, situation. Moves all ext x4 Pt update on day of discharge Patient seen today in follow-up for stroke, symptoms of right upper extremity numbness are improved to approximately baseline. Discharge plans were discussed with patient. Awaiting echo Hospital Course Patient seen and evaluated in follow-up for small cortical infarct with symptoms of right upper extremity weakness. This is improved. Patient's been seen by neurology. Medications have been adjusted to include aspirin and statin. Patient has done well and be discharged after her echocardiogram today. She will need outpatient Holter monitor Pt Condition on Discharge: Good Discharge Disposition: Discharge Home Discharge Time: <= 30 minutes Discharge Instructions DIET: Follow Instructions for: Heart Healthy Diet Activities you can perform: Regular-No Restrictions Follow up Referrals: PCP Follow-up - 1 Week New Orders: HOLTER MONITOR New Medications: Simvastatin (Simvastatin) 20 Mg Tab 20 MG PO DAILY for Cholesterol Management, #30 TAB 0 Refills Aspirin (Aspirin) 325 Mg Tab 325 MG PO DAILY for Stroke Prevention, #31 TAB Continued Medications: Buspirone (Buspirone) 10 Mg Tab 10 MG PO DAILY for Anxiety, TAB 0 Refills Levothyroxine (Levothyroxine) 75 Mcg Tab 75 MCG PO DAILY for Thyroid, #30 TAB 0 Refills Trazodone (Trazodone) 50 Mg Tab 50 MG PO HS for Control Depression, #30 TAB 0 Refills Venlafaxine (Effexor) 75 Mg Tab 75 MG PO DAILY, #30 TAB 0 Refills Jade Jennings MD May 17, 2017 08:55
[2017-05-17] MEDS ORDERED: busPIRone HCL 10 MG TAB PO SCH (09:00)
[2017-05-17] MEDS ORDERED: ASPIRIN 325 MG TAB PO SCH (09:00)
[2017-05-17] MEDS ORDERED: VENLAFAXINE HCL XR 75 MG CAP PO SCH (09:00)
[2017-05-17] MEDS ORDERED: METO25TA3 PO (09:53)
[2017-05-17] MEDS ORDERED: METOPROLOL TARTRATE 25 MG TAB PO SCH (10:00)
[2017-05-17 11:59] LABS: HEMOGLOBIN A1a 1.2 %; HEMOGLOBIN A1b 0.7 %; HEMOGLOBIN Ao 86.8 %; HEMOGLOBIN LA1C 1.3 %; HEMOGLOBIN P3 3.2 %
--- NOTE | 2017-05-17 12:55 | EKG ---
Date Performed: 05/17/2017 Time Performed: 10:36:05 PTAGE: 76 years EKG: SINUS BRADYCARDIA BORDERLINE LEFT AXIS DEVIATION BORDERLINE ECG PREVIOUS TRACING : 05/16/2017 07.14 DOCTOR: Ganesh Li Interpretating Date/Time 05/17/2017 12:54:47
--- NOTE | 2017-05-17 13:11 | ECHRPT ---
Indication: CVA/TIA CONCLUSIONS The left ventricular systolic function is low normal with an estimated ejection fraction in the rang e of 50- 55%. Wall thickness is measured at the upper limits of normal. Normal left ventricular size. There is trace tricuspid valve regurgitation. The estimated pulmonary arterial pressure is 28.8 mmHg. BP: / HR: Rhythm: Sinus MEASUREMENTS (Male / Female) Normal Values Technical Quality:Good 2D ECHO LV Diastolic Diameter PLAX 4.9 cm 4.2 - 5.9 / 3.9 - 5.3 cm LV Systolic Diameter PLAX 3.9 cm IVS Diastolic Thickness 1.1 cm 0.6 - 1.0 / 0.6 - 0.9 cm LVPW Diastolic Thickness 1.0 cm 0.6 - 1.0 / 0.6 - 0.9 cm LV Relative Wall Thickness 0.4 LVOT Diameter 2.1 cm M-MODE Aortic Root Diameter MM 3.4 cm LA Systolic Diameter MM 2.7 cm LA Ao Ratio MM 0.8 AV Cusp Separation MM 2.1 cm DOPPLER AV Peak Velocity 108.0 cm/s AV Peak Gradient 4.7 mmHg LVOT Peak Velocity 97.2 cm/s LVOT Peak Gradient 3.8 mmHg AV Area Cont Eq pk 3.1 cm Mitral E Point Velocity 83.9 cm/s Mitral A Point Velocity 72.6 cm/s Mitral E to A Ratio 1.2 LV E' Lateral Velocity 11.0 cm/s Mitral E to LV E' Lateral Ratio 7.6 LV E' Septal Velocity 7.5 cm/s Mitral E to LV E' Septal Ratio 11.2 TR Peak Velocity 217.0 cm/s TR Peak Gradient 18.8 mmHg Right Atrial Pressure 10.0 mmHg Pulmonary Artery Systolic Pressu 28.8 mmHg Right Ventricular Systolic Press 28.8 mmHg PV Peak Velocity 82.8 cm/s PV Peak Gradient 2.7 mmHg FINDINGS LEFT VENTRICLE The left ventricular systolic function is low normal with an estimated ejection fraction in the rang e of 50- 55%. Wall thickness is measured at the upper limits of normal. Normal left ventricular size. RIGHT VENTRICLE Normal right ventricular size and systolic function. LEFT ATRIUM The left atrial size is normal. RIGHT ATRIUM The right atrial size is normal. ATRIAL SEPTUM Normal atrial septal thickness without atrial level shunting by limited color doppler interrogation. AORTA The aortic root and proximal ascending aorta are normal in size on limited imaging. MITRAL VALVE Structurally normal mitral valve. No mitral valve stenosis or regurgitation. AORTIC VALVE Trileaflet aortic valve. No aortic valve stenosis or regurgitation. TRICUSPID VALVE There is trace tricuspid valve regurgitation. The estimated pulmonary arterial pressure is 28.8 mmHg. PULMONARY VALVE No pulmonary valve regurgitation or stenosis. VESSELS The inferior vena cava is normal in size. PERICARDIUM No pericardial effusion. Ganesh Li MD (Electronically Signed) Final Date:17 May 2017 13:10
== END 2017-05-17 11:41 | disposition home or self-care (01) | DRG 66 ==
LOC: PHED 06:44 → PHEDA 09:14 → PH3A 11:07
PROVIDERS: ADMIT Hospitalist; ATTEND Hospitalist
DX: I63.512 Cerebral infarction due to unspecified occlusion or stenosis of left middle cerebral artery (principal); I10 Essential (primary) hypertension; G83.21 Monoplegia of upper limb affecting right dominant side; F32.9 Major depressive disorder, single episode, unspecified; F41.9 Anxiety disorder, unspecified; M19.90 Unspecified osteoarthritis, unspecified site; F17.200 Nicotine dependence, unspecified, uncomplicated; Z85.3 Personal history of malignant neoplasm of breast; Z96.651 Presence of right artificial knee joint
CPT/HCPCS: 70450; 70496; 70498; 70548; 70551; 80048; 80061; 80307; 81001; 82550; 82607; 83036; 84443; 84484; 84702; 85025; 85384; 85610; 85730; 86850; 86900; 86901; 93005; 93306; 96360; A9579; J1644; J7030; Q9967